=== PATIENT | female | born 1950 | race Caucasian/White ===

== ENCOUNTER → 2024-05-17 | Outpatient (CLI) | payer OTHER ==
--- NOTE | 2024-05-17 16:16 | HMCIMG ---
US THYROID/NECK HISTORY: Neoplasm COMPARISON: None TECHNIQUE: Thyroid ultrasound study was performed. FINDINGS: Right thyroid lobe measures 4.2 x 2.3 x 2.5 cm. Left thyroid lobe measures 4.8 x 1.7 x 1.7 cm. Thyroid gland is heterogeneous with nodular appearance. Right thyroid nodules are seen with the largest measuring 2.4 cm. Left thyroid nodules are seen with the largest measuring 13 mm. IMPRESSION: 1. Bilateral thyroid nodules as described above.
== END | disposition home or self-care (01) ==
LOC: RAH 14:51
PROVIDERS: ATTEND Family Medicine
DX: D44.0 Neoplasm of uncertain behavior of thyroid gland (principal); E04.2 Nontoxic multinodular goiter
CPT/HCPCS: 76536